=== PATIENT | female | born 1970 | race Caucasian/White ===

== ENCOUNTER 2017-07-16 16:51 | Emergency (ER) | payer OTHER ==
[~2017-07-16] VITALS: Ht 152.4 cm; Wt 122.5 kg
[~2017-07-16 16:51] MED LIST: ALBU90OI61 INH; Aspirin EC81 MG PO; Ativan1 MG SL; BONINE25 MG PO; CLON.5 PO; DICL25ER; Desyrel50 MG; ESCI20 PO; GABA300 PO; GABA300T24; HYDCOR2.5B TOP; HYDR1TAB94 PO; IBUP800 PO; LAMO25 PO; LORA1 PO; LOSA25 PO; Lamictal150 MG PO; Lexapro 2020 MG PO; Metformin HCl850 MG PO; NICO14TP TOP; NITR.6SL SL; Nitrostat0.4 MG SL; PANT40 PO; PRAV20 PO; Prednisone50 MG PO; QVAR7.3 G1 IH; QVAR7.3 G1 INH; SIMV10 PO; TOPI25 PO; TRAM50 PO; TRAZ50 PO; Ultram50 MG PO
== END 2017-07-16 18:12 | disposition home or self-care (01) ==
LOC: ER 16:51
DX: M25.521 Pain in right elbow (principal); E11.9 Type 2 diabetes mellitus without complications; I10 Essential (primary) hypertension; F31.9 Bipolar disorder, unspecified; F17.200 Nicotine dependence, unspecified, uncomplicated; R56.9 Unspecified convulsions; Z87.820 Personal history of traumatic brain injury; Z88.8 Allergy status to other drugs, medicaments and biological substances; Z88.1 Allergy status to other antibiotic agents; Z79.84 Long term (current) use of oral hypoglycemic drugs; Z79.899 Other long term (current) drug therapy; Z79.82 Long term (current) use of aspirin; W01.0XXA Fall on same level from slipping, tripping and stumbling without subsequent striking against object, initial encounter
CPT/HCPCS: 73080; 99283

== ENCOUNTER 2019-01-26 12:14 | Emergency (ER) | payer OTHER ==
[~2019-01-26] VITALS: Ht 152.4 cm; Wt 135.2 kg
[~2019-01-26 12:14] MED LIST changes: +CIPR250 PO; +LAMO100 PO; +MELO7.5 PO; +Metformin HCl1000 MG PO; -Metformin HCl850 MG PO; +POTCHL20ER PO; +PRAZ1 PO; +Prempro 0.3 MG/1 TAB PO; +Prinivil10 MG PO; +QVAR REDIHALE10.6 G1 INH; -QVAR7.3 G1 INH; +TORSE20 PO; +VITAMIN D250000 UNIT PO
== END 2019-01-26 13:10 | disposition home or self-care (01) ==
LOC: ER 12:14
DX: G89.29 Other chronic pain (principal); M25.512 Pain in left shoulder; Z91.048 Other nonmedicinal substance allergy status; Z88.0 Allergy status to penicillin; Z88.8 Allergy status to other drugs, medicaments and biological substances; Z91.02 Food additives allergy status; Z79.899 Other long term (current) drug therapy; Z79.84 Long term (current) use of oral hypoglycemic drugs; Z79.82 Long term (current) use of aspirin; E11.9 Type 2 diabetes mellitus without complications; I10 Essential (primary) hypertension; F31.9 Bipolar disorder, unspecified; Z87.891 Personal history of nicotine dependence
CPT/HCPCS: 20610; 96372-59; 99283-25; J3301

== ENCOUNTER 2019-02-17 16:48 | Emergency (ER) | payer OTHER ==
[~2019-02-17] VITALS: Ht 152.4 cm; Wt 136.1 kg
== END 2019-02-17 18:59 | disposition home or self-care (01) ==
LOC: ER 16:48
DX: S06.9X9A Unspecified intracranial injury with loss of consciousness of unspecified duration, initial encounter (principal); Z88.1 Allergy status to other antibiotic agents; Z91.018 Allergy to other foods; Z91.048 Other nonmedicinal substance allergy status; Z79.899 Other long term (current) drug therapy; Z79.82 Long term (current) use of aspirin; E11.9 Type 2 diabetes mellitus without complications; I10 Essential (primary) hypertension; J44.9 Chronic obstructive pulmonary disease, unspecified; E78.5 Hyperlipidemia, unspecified; G47.30 Sleep apnea, unspecified; K21.9 Gastro-esophageal reflux disease without esophagitis; Z87.891 Personal history of nicotine dependence; W20.8XXA Other cause of strike by thrown, projected or falling object, initial encounter
CPT/HCPCS: 70450; 99284-25

== ENCOUNTER 2019-03-01 16:58 | Emergency (ER) | payer OTHER ==
[~2019-03-01] VITALS: Ht 152.4 cm; Wt 131.5 kg
== END 2019-03-01 18:41 | disposition home or self-care (01) ==
LOC: ER 16:58
DX: M25.561 Pain in right knee (principal); E11.9 Type 2 diabetes mellitus without complications; I10 Essential (primary) hypertension; F31.9 Bipolar disorder, unspecified; J44.9 Chronic obstructive pulmonary disease, unspecified; Z88.1 Allergy status to other antibiotic agents; Z91.018 Allergy to other foods; Z91.048 Other nonmedicinal substance allergy status; Z79.899 Other long term (current) drug therapy; Z79.82 Long term (current) use of aspirin; Z79.84 Long term (current) use of oral hypoglycemic drugs; Z87.891 Personal history of nicotine dependence
CPT/HCPCS: 73562-RT; 96372; 99283-25; J1885